=== PATIENT | male | born 1955 ===

== ENCOUNTER → 2023-09-20 09:57 | Outpatient (BNVA) | payer MEDICARE, SELFPAY | PROVIDERS: Visit Provider Nurse Practitioner Gerontology | DX: R31.0 Gross hematuria (principal) | CPT/HCPCS: 99205 ==

== ENCOUNTER → 2023-11-20 13:49 | Outpatient (BNVA) | payer MEDICARE, SELFPAY | PROVIDERS: Visit Provider Nurse Practitioner Gerontology | DX: R31.0 Gross hematuria (principal) | CPT/HCPCS: 99213 ==